=== PATIENT | male | born 1950 | race Caucasian/White ===

== ENCOUNTER 2019-10-12 07:17 | Observation (INO) ==
--- NOTE | 2019-09-24 11:38 | PAT Medication Instructions ---
Medication Instructions Date of Service September 24, 2019 Home Medications Medication Instructions Recorded ciprofloxacin HCl 500 mg tablet 500 mg PO BID #6 tab 04/16/19 sildenafil (pulm.hypertension) 20 20 - 100 mg PO ONCE PRN #90 tab 09/13/19 mg tablet ciprofloxacin HCl 500 mg tablet 500 mg PO BID sildenafil (pulm.hypertension) 20 mg tablet 20 - 100 mg PO ONCE PRN brinzolamide [Azopt] 1 drp OPHTHALMIC (EYE) BID latanoprost (PF) 1 drp OPHTHALMIC (EYE) PM lovastatin 20 mg PO HS pilocarpine HCl 1 drp OPHTHALMIC (EYE) QID timolol maleate (PF) 1 drp OPHTHALMIC (EYE) BID Continue as directed ciprofloxacin HCl 500 mg tablet 500 mg PO BID STOP taking 24 hours before surgery sildenafil (pulm.hypertension) 20 mg tablet 20 - 100 mg PO ONCE PRN Take morning of surgery OTHERWISE NOTHING TO EAT OR DRINK AFTER MIDNIGHT: pilocarpine HCl 1 drp OPHTHALMIC (EYE) QID timolol maleate (PF) 1 drp OPHTHALMIC (EYE) BID brinzolamide [Azopt] 1 drp OPHTHALMIC (EYE) BID Take evening before surgery brinzolamide [Azopt] 1 drp OPHTHALMIC (EYE) BID latanoprost (PF) 1 drp OPHTHALMIC (EYE) PM lovastatin 20 mg PO HS pilocarpine HCl 1 drp OPHTHALMIC (EYE) QID timolol maleate (PF) 1 drp OPHTHALMIC (EYE) BID Other Notes If you have any questions please call us at [phone] or [phone] or [phone] or [phone]
--- NOTE | 2019-09-27 11:07 | Anesthesiology Consultation ---
Date of Service September 27, 2019 Assessment & Plan (1) Encounter for pre-operative examination: COVID Status: As of 09/23 nurse assessment, patient denies travel to endemic area, known exposure/sick contacts, or symptoms of COVID19. Patient's girlfriend returned from [place] on 09/25, patient advised to avoid contact for two weeks. 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 He states he has stopped doing this and will not have contact with them between now and surgery, and will not be able to return to helping them as he will have post-op lifting restrictions. Preoperative COVID19 testing to be completed prior to surgery. Chart Review Chart Review: Acceptable Risk for Surgery and Patient seen in Pre Admission Testing Teaching & Discussion Instructed NPO after midnight before surgery, except medications with 15 cc of water. Medication instructions provided according to the PAT guidelines. History Surgery Operation Date: 10/12/19 07:30 Proposed Procedures p Laparoscopic Robotic Assisted Radical Retropubic Prostatectomy, Possible Open, Possible Pelvic Lymph Node Dissection, Possible Suprapubic Tube Placement - Jonah Wynn MD Height/Weight Height: 5 ft 8 in Weight: 73.6 kg Allergies Allergy/AdvReac Type Severity Reaction Status Date / Time No Known Allergies Allergy Verified 09/27/19 08:14 Medications Home Medications Medication Instructions Recorded Confirmed Last Taken ciprofloxacin HCl 500 mg tablet 500 mg PO BID #6 tab 04/16/19 09/27/19 Unknown brinzolamide OP 04/27/19 09/27/19 Unknown latanoprost OP 04/27/19 09/27/19 Unknown lovastatin PO 04/27/19 09/27/19 Unknown pilocarpine HCl 0.5 % eye drops % OP 04/27/19 09/27/19 Unknown timolol maleate OP 04/27/19 09/27/19 Unknown sildenafil (pulm.hypertension) 20 20 - 100 mg PO ONCE PRN #90 tab 09/13/19 09/27/19 Unknown mg tablet brinzolamide [Azopt] 1 drp OPHTHALMIC (EYE) BID 09/24/19 09/27/19 Unknown latanoprost (PF) 1 drp OPHTHALMIC (EYE) PM 09/24/19 09/27/19 Unknown lovastatin 20 mg PO HS 09/24/19 09/27/19 Unknown pilocarpine HCl 1 drp OPHTHALMIC (EYE) QID 09/24/19 09/27/19 Unknown sildenafil (pulm.hypertension) 20 mg PO UD PRN 09/24/19 09/27/19 Unknown timolol maleate (PF) 1 drp OPHTHALMIC (EYE) BID 09/24/19 09/27/19 Unknown Past Medical History Medical History Arthritis Glaucoma Hyperlipidemia Impotence Prostate cancer Sleep apnea CPAP Exercise / Class Metabolic Activity 1 > 8 Run/Swim/Ski/Tennis (rides bike 10 miles per day) Past Surgical History Surgical History History of colonoscopy History of hernia surgery X 2 History of tooth extraction WISDOM TEETH Hx of cataract surgery R/L Past Anesthesia History No Hx of Anesthesia Complications and No Family Hx of Anesthesia Complications History of PONV No Hx of PONV and Hx of Motion Sickness (rare vertigo) Social History Smoking Status: Never smoker Do You Dip or Chew Tobacco: No Hx Alcohol Use: Yes Alcohol type: wine alcohol intake frequency: holidays/special occasions only Hx Substance Use: No Review of Systems Pt denies any recent chest pain, shortness of breath, palpitations, cough, fever or URI. Physical Exam Vital Signs BP: 144/76 P: 71bpm SPO2: 96% RA T: 98.3 F R: 12 ENMT Mouth: + dental restorations (veneers on upper front); no loose teeth Thyromental Distance: < 3.5 Finger Breadths (3) Mallampati Class: I Neck normal visual inspection; neck extension not limited Respiratory normal respiratory effort Auscultation: lungs clear to auscultation bilaterally Cardiovascular Rate/Rhythm: regular rate and regular rhythm Heart Sounds: no murmur Testing Laboratory Results 09/27/19 11:16 09/27/19 11:16 Urine Color Yellow 09/27/19 11:16 Urine Appearance Clear (Clear) 09/27/19 11:16 Urine pH 5.0 (4.5-7.5) 09/27/19 11:16 Ur Specific [place] 1.022 (1.000-1.030) 09/27/19 11:16 Urine Protein Negative (Negative) 09/27/19 11:16 Urine Glucose (UA) Negative (Negative) 09/27/19 11:16 Urine Ketones Negative (Negative) 09/27/19 11:16 Urine Nitrite Negative (Negative) 09/27/19 11:16 Ur Leukocyte Esterase Negative (Negative) 09/27/19 11:16 Blood Type A Positive 09/27/19 11:16 Antibody Screen NEGATIVE 09/27/19 11:16 Electrocardiogram Date: 09/27/19 Findings: + NSR @ (68bpm) Chest X-Ray Date: 09/27/19 Findings: + NAD
--- NOTE | 2019-09-27 11:44 | Electrocardiogram Report ---
Test Reason : Blood Pressure : / mmHG Vent. Rate : 068 BPM Atrial Rate : 068 BPM P-R Int : 186 ms QRS Dur : 112 ms QT Int : 408 ms P-R-T Axes : 057 089 065 degrees QTc Int : 433 ms Normal sinus rhythm Normal ECG No previous ECGs available Confirmed by Mak Ybarra ([id number]) on 09/27/2019 11:44:35 AM Referred By: Jonah Wynn Confirmed By:Mak Ybarra
[2019-09-27 11:49] LABS: Basophils # (auto) 0.03 K/uL (0-0.2); Basophils % (auto) 0.6 %; Eosinophils # (auto) 0.09 K/uL (0-0.5); Eosinophils % (auto) 1.7 %; Hematocrit (blood only) 44.7 % (42-52); Hemoglobin 14.8 g/dL (14.0-18.0); Immature Granulocytes # (auto) 0.01 K/uL (0.00-0.02); Immature Granulocytes % (auto) 0.2 %; Lymphocytes # (auto) 1.36 K/uL (1.2-3.4); Lymphocytes % (auto) 25.2 %; Mean Corpuscular Hgb Conc 33.1 g/dL (32-36); Mean Corpuscular Volume 90.7 fL (80-100); Monocytes # (auto) 0.61 K/uL (0.11-0.59); Monocytes % (auto) 11.3 %; Neutrophils # (auto) 3.29 K/uL (1.4-6.5); Platelet Count 239 K/uL (130-400); RDW Coefficient of Variation 14.6 % (11.5-14.5); RDW Standard Deviation 48.6 fL (36.4-46.3); Red Blood Count 4.93 M/uL (4.7-6.1); White Blood Count 5.39 K/uL (4.8-10.8)
[2019-09-27 11:50] LABS: Appearance Urine Clear (Clear); Bilirubin Urine Negative (Negative); Blood Urine Negative (Negative); Color Urine Yellow; Glucose Urine UA Negative (Negative); Ketones Urine Negative (Negative); Leukocyte Esterase Urine Negative (Negative); Nitrite Urine Negative (Negative); Protein Urine Negative (Negative); Specific Gravity Urine 1.022 (1.000-1.030); Urobilinogen Urine Negative (Negative)
--- NOTE | 2019-09-27 11:57 | XRay Report ---
XR chest Pre-admission PA/Lat HISTORY: Preop. COMPARISON: None. FINDINGS: A few small linear densities at the left lung base. This favors scarring or subsegmental at electasis. Otherwise, the lungs are clear. No pleural effusions. No pneumothorax. The heart is normal in size. IMPRESSION: No acute process. ACT 112: Negative or not required by law. Electronically signed by: Wade Oviedo M.D. 09/27/2019 11:56 AM
[2019-09-27 14:42] LABS: BUN Creatinine Ratio 15.4 (10-20); Calcium 9.4 mg/dl (8.5-10.1); Creatinine Clr Calc Pharmacy 76.6 ml/min; Est GFR (African American) 101.6; Est GFR (Non-African American) 87.6
[~2019-10-12 07:17] MED LIST: ACETAMINOPHEN 1000 MG/100 ML IV IV ONE; BUPIVACAINE 0.5 % 5 MG/1 ML MPF 30ML VIAL ONE; CEFAZOLIN 2000MG 2,000 MG/15 ML SYR IV SCH; LACTATED RINGER'S 1,000 ML IV SCH; MIDAZOLAM HCL 1 MG/ML 2ML VIAL ONE; fentaNYL citrate 100 MCG/2 ML VIAL ONE
[2019-10-12] MEDS ORDERED: HEPARIN SOD 5,000 UNIT/0.5 ML VIAL ONE (07:32)
--- NOTE | 2019-10-12 07:50 | History & Physical Bridge Note ---
Date of Service October 12, 2019 History & Physical Bridge Note I have examined the patient, reviewed the History & Physical and in the interval since the performance of the History & Physical I have noted the following changes of clinical significance: no changes noted
[2019-10-12] MEDS ORDERED: ePHEDrine sulfate 50 MG/ML AMP IV PRN (08:19)
[2019-10-12] MEDS ORDERED: fentaNYL citrate 100 MCG/2 ML VIAL IV PRN (08:19)
[2019-10-12] MEDS ORDERED: ONDANSETRON INJ 2 MG/ML 2 ML VIAL IV PRN ×2 (08:19→13:54)
[2019-10-12] MEDS ORDERED: ATROPINE SULFATE 0.1 MG/ML 10ML SYR IV PRN (08:19)
[2019-10-12] MEDS ORDERED: HYDROmorphone INJ 2 MG/ML SYR/VIAL IV PRN (08:19)
[2019-10-12] MEDS ORDERED: BELLADONNA/OPIUM SUPP 60 MG SUPP PR ONE (08:44)
[2019-10-12] MEDS ORDERED: PROPOFOL IV EMULSION 10 MG/ML 20 ML VIAL IV ONE (09:01)
[2019-10-12] MEDS ORDERED: ONDANSETRON INJ 2 MG/ML 2 ML VIAL ONE (09:01)
[2019-10-12] MEDS ORDERED: LIDOCAINE HCL 2% 2 ML VIAL/AMP(20MG/ML) INFIL ONE (09:01)
[2019-10-12] MEDS ORDERED: PHENYLEPHRINE 100MCG/ML 5ML SYR ONE (09:01)
[2019-10-12] MEDS ORDERED: ROCURONIUM BROMIDE 10 MG/ML 5 ML VIAL IV ONE (09:01)
[2019-10-12] MEDS ORDERED: DEXAMETHASONE SOD INJ 4 MG/ML VIAL ONE (09:01)
[2019-10-12] MEDS ORDERED: ePHEDrine sulfate 50 MG/ML SYR ONE (09:15)
[2019-10-12] MEDS ORDERED: BELLADONNA/OPIUM SUPP 60 MG SUPP PR PRN (10:13)
[2019-10-12] MEDS ORDERED: NEOSTIGMINE METHYLSULFATE 5 MG/5 ML SYR ONE (11:38)
[2019-10-12] MEDS ORDERED: GLYCOPYRROLATE 0.2 MG/ML VIAL ONE (11:38)
[2019-10-12] MEDS ORDERED: FLOSEAL HEMOSTATIC MATRIX 10ML TOP ONE (11:46)
[2019-10-12] MEDS ORDERED: HYDROmorphone INJ 2 MG/ML SYR/VIAL ONE (11:51)
--- NOTE | 2019-10-12 12:31 | Operative Report ---
PG Post Operative Report Pre & Post Diagnosis Operation Date: 10/12/19 08:45 Pre-Op Diagnosis: Prostate Cancer Post-Op Diagnosis: Prostate Cancer I identified the patient and participated in the time-out.: Yes Procedure Operation Date: 10/12/19 08:45 Actual Procedures p Laparoscopic Robotic Assisted Prostatectomy and Bilateral Pelvic Lymph Node Dissection(Right) - Jonah Wynn MD Surgeon Wenceslao Wynn MD Quilter Fixer Sera Bartholomew Estimated Blood Loss 100 Findings Consistent with Post-Op Diagnosis Specimens 1. Periprostatic fat 2. Right pelvic lymph nodes 3. Left pelvic lymph nodes 4. Prostate and seminal vesicles Description of Procedure The patient was identified in the preoperative holding area, appropriate informed consents were reviewed and completed, and he was transported to the operating suite. Subcutaneous heparin was administered in the pre-operative holding area. Upon arrival in the operating suite, he received appropriate antibiotics and general anesthesia. He was positioned in dorsal lithotomy, a B&O suppository was inserted after digital rectal exam, and he was prepped and draped in standard fashion. A Green catheter was inserted in the sterile field. A Veress needle was passed per umbilicus with uniform insufflation of the abdomen to 15mmHg. He was placed in steep Trendelenburg position. A periumbilical incision was then made to accommodate a 12mm Visiport with 10mm 0degree laparoscope. Inspection of the abdomen was carried out, and there was no evidence of traumatic entry or injury secondary to the Veress needle. After confirming a clear anterior abdominal wall, ports were subsequently placed in standard robotic prostatectomy fashion without incident. To begin the robotic portion of the case, the left lateral aspect of the sigmoid was mobilized off of the left pelvic side wall to allow the pouch of [place] to be appropriately visualized. I then made an incision in the pouch of [place], overlying the seminal vesicles. Both SVs as well as the ampullae of the vasa were entirely dissected, with the vasa transected 3cm from the prostate. The medial umbilical ligaments were then controlled with bipolar electrocautery just inferior to the umbilicus. Following cauterization, they were divided utilizing monopolar cautery. A peritoneal incision was carried from this location to the medial aspect of the internal inguinal rings bilaterally with care to avoid opening through the ring. This incision was concluded when the v as deferens was reached. Dissection of the bladder and prostate off of the posterior aspect of the pubic arch was completed allowing full visualization of the prostate. The fat overlying the prostate was removed en bloc and passed off the table as a specimen labeled "periprostatic fat". The endopelvic fascia was cleared during this portion of the procedure, and subsequently opened - first on the right and then the left. The incision through the endopelvic fascia began near the prostate-bladder junction and was carried to the apex with extreme care to preserve all lateral levator musculature as well as the periurethral musculature and sphincter complex. I additionally preserved the puboprostatic ligaments. I then controlled the DVC with a 3-0 V-lock suture in overlapping/figure of 8 fashion. The lymph node dissection was then conducted. External iliac vessels were identified on the pelvic side wall. The packet of fat and lymphatic tissue that resides just under the iliac vein was elevated and off of the vein with a split and roll technique. The packet was dissected laterally to the circumflex vein and distally to the obturator nerve which was preserved. The proximal aspect of the packet was carried towards the bifurcation of the iliac vessels. A combination of monopolar and bipolar cautery were used to assist with control. After completing the dissection on both sides, the packets were collected and passed off of the table as specimens labeled "pelvic lymph nodes". My attention then returned to the prostate, with identification of the bladder neck aided by gentle traction on the Green catheter and lateral to medial pressure at the presumed level of the bladder neck with the robotic instruments. An anterior cystotomy was made, the Green balloon deflated and the catheter guided through the incision to allow anterior retraction. I attempted to preserve maximal bladder neck musculature as I circumferentially dissected around the bladder neck. After incision through the posterior aspect of the mucosa, the dissection was carried through detrusor muscle until the bilateral ampullae of the vasa were identified. The previously dissected vasa and SVs were brought through the incision and used to elevated the prostate anteriorly. A posterior plane behind the prostate was then developed - splitting Denonvilliers's fascia. This dissection was carried as far as possible towards the apex as well as far as possible laterally. An incision in the lateral prostatic fascia was then made bilaterally to facilitate control of the vascular pedicles and preservation of the nerve bundles. Vasculature running along the posterior/lateral aspect of the prostate was preserved as well as the tissue containing the nerves. The pedicles were then controlled with a series of Weck clips. The apical attachments of the prostate were remaining at that stage. The DVC was divided after control with bipolar cautery over the prostate. Continuous inspection from anterior and lateral views allowed me to closely follow the apical contour of the prostate and maximally preserve urethral length and tissue. The prostate was entirely freed at that point, and collected in an EndoCatch bag before being moved out of the field of vision. Hemostasis was confirmed and anastomosis of the bladder and urethra was completed utilizing a double armed V- Lock stitch. A new Green catheter was inserted and the anastomosis tested with irrigation. There was no evidence of leak. A hadley style stitch was placed bilaterally to functionally marsupialize the area of the lymph node dissection. The robot was undocked, the specimen extracted through expansion of the jasmine- umbilical camera port. Of note, he appears to have an umbilical hernia and I elected to open from the superior aspect of the umbilicus through the defect and then closed the entire defect utilizing 0 PDS sutures. The fascia was closed with a series of 0-PDS figure of 8 stitches. The right assistant media planner port was closed in two layers - with a figure of 8 0-Vicryl to reapproximate the fascia followed by 4-0 Monocryl to close the skin. Monocryl was used to close all other skin incisions. All wounds were dressed with Dermabond. The case was concluded and the patient taken to the PACU in stable condition. Sonia Bryant and Sera Post assisted from incision to closure I attest to the content of the Intraoperative Record and any orders documented therein. Any exceptions are noted below.
[2019-10-12 12:50] LABS: Basophils # (auto) 0.02 K/uL (0-0.2); Basophils % (auto) 0.3 %; Eosinophils # (auto) 0.01 K/uL (0-0.5); Eosinophils % (auto) 0.2 %; Hematocrit (blood only) 47.2 % (42-52); Hemoglobin 15.2 g/dL (14.0-18.0); Lymphocytes # (auto) 0.74 K/uL (1.2-3.4); Lymphocytes % (auto) 12.8 %; Mean Corpuscular Hemoglobin 29.8 pg (25-34); Mean Corpuscular Volume 92.5 fL (80-100); Mean Platelet Volume 11.7 fL (7.4-10.4); Monocytes # (auto) 0.17 K/uL (0.11-0.59); Monocytes % (auto) 2.9 %; Neutrophils # (auto) 4.86 K/uL (1.4-6.5); Neutrophils % (auto) 83.8 %; Platelet Count 228 K/uL (130-400); RDW Coefficient of Variation 14.5 % (11.5-14.5); RDW Standard Deviation 49.5 fL (36.4-46.3)
--- NOTE | 2019-10-12 12:53 | Anesthesiology Progress Note ---
Date of Service October 12, 2019 Anesthesia Post Procedure Vital Signs Vital Signs: Temp Pulse Pulse Resp BP Pulse Ox 10/12/19 12:40 74 13 121/75 100 10/12/19 12:30 69 12 141/77 H 100 10/12/19 12:20 36.2 C L 79 18 125/85 99 10/12/19 07:46 36.7 C 67 18 173/103 H 96 Transfer of Care Handoff Completed per policy Notes Mental Status: alert / awake / arousable and participated in evaluation Patient Amnestic to Procedure: Yes Nausea / Vomiting: adequately controlled Pain: adequately controlled Airway Patency, RR, SpO2: stable & adequate BP & HR: stable & adequate Hydration State: stable & adequate Anesthetic Complications: no major complications apparent and Pt Satisfied with anesthetic care Notes: central and peripheral vision intact
[2019-10-12 12:56] LABS: Mean Corpuscular Hgb Conc 32.2 g/dL (32-36)
[2019-10-12 13:03] LABS: Calcium 8.7 mg/dl (8.5-10.1); Creatinine Clr Calc Pharmacy 69.5 ml/min; Est GFR (African American) 91.9; Est GFR (Non-African American) 79.3; Potassium 4.6 mmol/L (3.5-5.1)
[2019-10-12] MEDS ORDERED: MoRPHine SULFATE 4 MG/ML 1 ML CARP\\VIAL IV PRN (13:54)
[2019-10-12] MEDS ORDERED: KETOROLAC TROMETHAMINE 15 MG/ML VIAL IV PRN (13:54)
[2019-10-12] MEDS ORDERED: ACETAMINOPHEN 325 MG TAB PO PRN (13:54)
[2019-10-12] MEDS ORDERED: MoRPHine SULFATE 2 MG/ML CARP IV PRN ×2 (13:54→14:03)
[2019-10-12] MEDS ORDERED: OXYCODONE HCL IR 5 MG TAB (IMMEDIATE RELEASE) PO PRN ×2 (13:54)
[2019-10-12] MEDS: LACTATED RINGER'S 1,000 ML IV SCH ×2 (14:23→23:20)
[2019-10-12] MEDS: PILOCARPINE HCL 4% OP SOLN 15 ML BTL OP SCH ×3 (14:43→20:51)
[2019-10-12] MEDS: CEFAZOLIN 2000MG 2,000 MG/15 ML SYR IV SCH ×2 (16:28→23:20)
[2019-10-12] MEDS: BRINZOLAMIDE (AZOPT) OPS 10 ML BTL OP SCH (20:52)
[2019-10-12] MEDS: TIMOLOL MALEATE 0.5% OP SOLN 5 ML BTL OP SCH (20:53)
[2019-10-12] MEDS: HEPARIN SOD 5,000 UNIT/0.5 ML VIAL SQ SCH (20:53)
[2019-10-12] MEDS ORDERED: LOVASTATIN 20 MG TAB PO SCH (21:00)
[2019-10-12] MEDS ORDERED: LATANOPROST 0.005% OP SOLN 2.5 ML BTL OP SCH (21:00)
[2019-10-13 05:13] LABS: Basophils # (auto) 0.01 K/uL (0-0.2); Basophils % (auto) 0.1 %; Hematocrit (blood only) 42.8 % (42-52); Hemoglobin 13.8 g/dL (14.0-18.0); Immature Granulocytes # (auto) 0.01 K/uL (0.00-0.02); Immature Granulocytes % (auto) 0.1 %; Lymphocytes # (auto) 1.31 K/uL (1.2-3.4); Lymphocytes % (auto) 16.6 %; Mean Corpuscular Hemoglobin 29.7 pg (25-34); Mean Corpuscular Hgb Conc 32.2 g/dL (32-36); Mean Platelet Volume 11.5 fL (7.4-10.4); Monocytes # (auto) 1.03 K/uL (0.11-0.59); Monocytes % (auto) 13.1 %; Neutrophils # (auto) 5.52 K/uL (1.4-6.5); Neutrophils % (auto) 70.1 %; Platelet Count 232 K/uL (130-400); RDW Coefficient of Variation 14.5 % (11.5-14.5); RDW Standard Deviation 49.1 fL (36.4-46.3); Red Blood Count 4.65 M/uL (4.7-6.1); White Blood Count 7.88 K/uL (4.8-10.8)
[2019-10-13 06:05] LABS: BUN Creatinine Ratio 12.8 (10-20); Calcium 8.6 mg/dl (8.5-10.1); Creatinine Clr Calc Pharmacy 92.4 ml/min; Est GFR (African American) 109.7; Est GFR (Non-African American) 94.6; Potassium 4.2 mmol/L (3.5-5.1)
[2019-10-13] MEDS: PILOCARPINE HCL 4% OP SOLN 15 ML BTL OP SCH ×2 (06:51→12:13)
[2019-10-13] MEDS: TIMOLOL MALEATE 0.5% OP SOLN 5 ML BTL OP SCH (06:51)
[2019-10-13] MEDS: BRINZOLAMIDE (AZOPT) OPS 10 ML BTL OP SCH (06:51)
[2019-10-13] MEDS: LACTATED RINGER'S 1,000 ML IV SCH (06:52)
--- NOTE | 2019-10-13 09:09 | Urology Progress Note ---
Date of Service October 13, 2019 Assessment & Plan (1) Prostate cancer: Postoperative day #1 status post robotic prostatectomy Recovery on pace thus far Labs are stable He feels well He is ambulatory Advance diet Likely discharge home this afternoon Subjective Doing extremely well thus far with recovery from his prostatectomy Minimal pain He has been ambulatory He is tolerating clear liquids He has no nausea Urine is clear Lab are stable Review of Systems Review of Systems: All systems reviewed & are unremarkable except as noted in HPI & below Physical Exam Physical Exam: Incisions completely appropriateno bruising, no bulging, no signs of infection Urine clear Results & Data Vital Signs (Past 12 Hours) Vital Signs Temp Pulse Resp BP Pulse Ox 10/13/19 07:09 36.9 C 76 18 138/78 98 10/13/19 02:42 36.8 C 81 16 143/83 H 98 10/12/19 23:15 36.8 C 71 16 138/83 96 PG Care Time/CCT Total # of Minutes Spent Total Time Spent with Patient: Total time spent is greater than 50% in coordination of care (as documented) at patient's floor/unit and/or counseling patient: Coding Level of Care Code None Diagnoses Prostate cancer C61
[2019-10-13] MEDS: HEPARIN SOD 5,000 UNIT/0.5 ML VIAL SQ SCH (09:28)
--- NOTE | 2019-10-22 08:08 | Discharge Summary ---
Date of Service October 22, 2019 Admission HPI Per Admitting Provider Admitted for prostatectomy secondary to recently diagnosed prostate cancer Principal Diagnosis Prostate cancer Discharge Data Allergies Allergy/AdvReac Type Severity Reaction Status Date / Time No Known Allergies Allergy Verified 10/18/19 09:58 Procedures Performed Operation Date: 10/12/19 08:45 Actual Procedures p Laparoscopic Robotic Assisted Prostatectomy and Bilateral Pelvic Lymph Node Dissection(Right) - Jonah Wynn MD Hospital Course (1) Prostate cancer: Patient admitted for a robotic prostatectomy - details of the procedure as dictated previously in my operative report - in summary, he tolerated the procedure very well - he was in stable condition overnight with appropriate urine output and stable labs - he was subsequently discharged home with a estes catheter - he was in stable condition at the time of discharge Total Time Total Time Spent Total Time Spent (In Minutes): 20 Total Time Includes: Examination of the Patient, Discharge Planning, Medication Reconciliation, Communication With Other Providers and Other Discharge Plan Discharge Items Patient Disposition: Home - Self-Care Reason For Visit: Prostate Cancer Discharge Diagnosis: Prostate Cancer Activity: Per Instructions section Lifting: No more than 10 pounds Bathing Comment: No tub baths or soaking, okay to shower in 1 day Sexual Activity: Wait until after follow-up appointment Exercise/Sports: Wait until after follow-up appointment Driving/Machine Use: Do not drive while on narcotic pain medication Non-emergency contact: Surgeon and Urologist Call non-emergency contact if: your temperature is above 101 Follow-up/Referrals: Jonah Wynn MD [Physician] - 11/03/19 2:30 pm Manisha Irene [Primary Care Provider] - Urology,Nurse [FAKE FOR SCHEDULES] - 10/18/19 10:00 am Diet: Regular Addtl Attending Provider Instructions: Please take all medications as prescribed and keep all follow-ups as scheduled. Please call our office at [phone] with any questions, concerns or need to reschedule appointments for any reason. We are happy to assist you We have sent an antibiotic to your pharmacy of choice. Please begin antibiotic as prescribed the day BEFORE your scheduled voiding trial at [facility]. Please continue antibiotic every 12 hours through the day AFTER your voiding trial. Activity: We recommend having someone with you for the first few days after surgery to help care for you. For the first 2 weeks after surgery, we would like you to get up and walk around your house. However, we recommend limit physical activity that would increase your heart rate. This will allow your body to rest and heal. Take naps if you feel tired. Don't lift anything heavier than 10 pounds, mow the law or ride a bicycle until your follow-up appointment. Please avoid long car rides. Home Care: Unless directed otherwise, drink 6 to 8 glasses of water a day (enough to keep your urine light colored). This will also help keep a healthy flow of urine. We recommend using a stool softener for the first two weeks to avoid constipation. Estes Catheter or Suprapubic Catheter care: Keep the catheter well secured with either a leg back or leg strap with large bag. Empty your bag when it's about half full. You may notice some blood in the bag. This is normal after surgery and while the catheter is in place. Use mild soap (such as Dove or Dial) and water to wash the catheter and the head of your penis daily, or more frequently if needed. Return to your normal diet, we encourage good protein intake to promote healing. You may shower as normal. Please avoid tub baths or soaking until catheter removed and incisions well healed. Wearing sweat pants while you have the catheter is recommended, they will be more comfortable. Follow-up Your follow up appointments for having your catheter removed, and follow up with your physician should already be scheduled. If you have any questions regarding this, please contact our office. Your final pathology report will be discussed at your physician follow-up appointment. Call [facility] at [phone] right away if you have any of the following: Chest pain or trouble breathing (call 802 or go to the hospital) Fever of 101F or higher, uncontrolled vomiting Heavy bleeding, clots, or bright red blood from the catheter Catheter that falls out or stops draining Foul-smelling discharge from your catheter Redness, swelling, warmth, or increased pain at your incision site Drainage, pus, or bleeding from your incision Pending Studies at Discharge: Yes Studies:: Pathology Stand-Alone Forms: My [employer]Line, Opioid Pain Management, Smoking Cessation Medications and DC Order Prescriptions: New oxycodone-acetaminophen [Percocet] 5-325 mg tablet 1 tab PO TID PRN (Reason: pain) Qty: 14 RF: 0 docusate sodium [Colace] 100 mg capsule 100 mg PO BID Qty: 60 RF: 0 Continued Azopt 1 % Drops,Suspension 1 drp OPHTHALMIC (EYE) BID RF: 0 pilocarpine HCl 4 % Drops 1 drp OPHTHALMIC (EYE) QID RF: 0 timolol maleate (PF) 0.5 % Dropperette 1 drp OPHTHALMIC (EYE) BID RF: 0 latanoprost (PF) 0.005 % Drops 1 drp OPHTHALMIC (EYE) PM RF: 0 lovastatin 20 mg Tablet 20 mg PO HS RF: 0 Discontinued sildenafil (pulm.hypertension) 20 mg Tablet 20 mg PO UD PRN (Reason: Erectile Dysfunction) RF: 0 Discharge Orders: Discharge Order (Routine); Ordered 10/13/19 Ordered By: Sonia Whitley/Other Patient Handouts: Emptying and Cleaning Your Urinary Catheter Bag, Indwelling Urinary Catheter Dc, Discharge Instructions Caring for Your Leg Bag Admission Data Admit Date/Time: 10/12/19 12:30 Attending Provider: Jonah Wynn Admit Provider: Jonah Wynn Primary Care Provider: Manisha Irene Other Providers: [facility] Other Interventions: Discharge Summary Assessment (RN) Last Done: 10/13/19 12:22 DC Date/Time DO NOT enter until pt leaves facility: 10/13/19 12:54 Coding Level of Care Code D/C Day Management <30 mins Diagnoses Prostate cancer C61
== END 2019-10-13 12:54 | disposition home or self-care (01) ==
LOC: ASU 07:17 → INTOOBSV 12:30 → 3W 12:30